=== PATIENT | female | born 1950 | race Caucasian/White ===

== ENCOUNTER 2023-04-02 06:00 | Day surgery (SDC) | payer MEDICARE, OTHER ==
[2023-03-26 11:43] VITALS: BP 120/98
--- NOTE | 2023-03-31 08:08 | NUR ---
PT PRE-OP RESULTS OBTAINED FROM [facility]. Stir+ IS 3.1. VALUE CALLED TO DR. JOYCELYN QUINTANA. REPORT FAXED TO DR JOYCELYN QUINTANA.
--- NOTE | 2023-03-31 12:43 | NUR ---
PCP -DR. UMANZOR HAS PROVIDED PT WITH RX FOR POTASSIUM SUPPLEMENT.
[~2023-04-02] VITALS: Ht 170.2 cm; Wt 81.4 kg
[~2023-04-02 06:00] MED LIST: BENADRYL25 MG PO; BIOTIN2500 MCG PO; CIPRO500 MG PO; DIAZEPAM5 MG PO; EZETIMIBE10 MG PO; FISH OIL CONC1000 MG PO; FLUTICASONE PRO16 GM NAS; HYDROCHLOROTHIA25 MG PO; IBUPROFEN800 MG PO; KEFLEX500 MG PO; LACTULOSE10 GM/15 M PO; LACTULOSE10 GM/151 PO; LEVOCETIRIZINE D5 MG PO; LISINOPRIL40 MG PO; MEDROL4 M1 PO; METRONIDAZOLE500 MG PO; MONTELUKAST SOD10 MG PO; NIFEDIPINE ER30 MG PO; NORCO 5-325 TA1 EACH PO; OMEPRAZOLE20 MG PO; ONE DAILY1 EAC1 PO; OXYCODONE-ACET1 EAC3 PO; PROAIR HFA8.5 GM INH; TIZANIDINE HCL2 MG PO; TOPROL XL25 MG PO; TRAMADOL HCL50 MG PO; ZYRTEC10 MG PO
[2023-04-02] MEDS ORDERED: FLONASE ALLERG9.9 ML NAS (06:16)
[2023-04-02] MEDS ORDERED: PRILOSEC OTC20 MG PO (06:18)
[2023-04-02] MEDS ORDERED: TYLENOL EXTRA500 MG PO (06:20)
[2023-04-02 06:22] VITALS: BP 144/104
[2023-04-02] MEDS ORDERED: POTASSIUM CHLO20 ME2 PO (06:25)
[2023-04-02 06:47] VITALS: BP 144/74
[2023-04-02 06:53] LABS: ANION GAP 13.1 (7-21); BUN/CREATININE RATIO 12.19 (6.0-28.6); CALCIUM 9.8 mg/dL (8.5-10.1); CREATININE, SERUM 0.82 mg/dL (0.55-1.02); POTASSIUM 3.1 mmol/L (3.5-5.1)
--- NOTE | 2023-04-02 07:38 | NUR ---
DS ROUNDS. PT GONE FOR PROCEDURE. PROVIDED PRAYER.
[2023-04-02 10:43] VITALS: BP 136/74
--- NOTE | 2023-04-02 10:48 | NUR ---
04/02/23 Jacoby RosaAster Angelique 0813- PT ARRIVES TO PACU, LEFT LATERAL POSITION, NON REACTIVE TO STIMULUS. O2 AT 6L PER MASK, LR INFUSING TO RW IV. ABD SOFT, NON DISTENDED. PT PASSING GAS. ALL MONITORS IN PLACE, NO SIGNS OF DISTRESS. 0830- PT STARTLES SELF AWAKE, REORIENTED TO TIME AND PLACE. PT CALMS EASILY. THANKFUL PROCEDURE IS COMPLETE. DENIES PAIN OR NAUSEA. PT MOVED TO ROOM AIR AT THIS TIME. CONTINUES TO PASS GAS. 0847- PT SITTING UP IN BED, ABLE TO REPOSITION SELF. WATER PROVIDED, TOLERATING WELL. 0855- PT UP TO SIDE OF BED, NO COMPLAINTS. PT AMBULATES WITH STEADY GAIT TO BATHROOM, PT TO GET DRESSED, FRIEND CALLED FOR RIDE. 0915- PT VERBALIZED UNDERSTANDING OF INSTRUCTIONS. SALINE LOCK REMOVED, TIP INTACT, DRESSING APPLIED. PT AMBULATED TO WHEEL CHAIR WITH STEADY GAIT. ALERT AND ORIENTED, NO SIGNS OF DISTRESS. ALL BELONGINGS WITH PT, TAKEN OUT TO FRIENDS CAR.
--- NOTE | 2023-04-03 07:34 | OR ---
[facility] [address], [place] [address] Signed DATE OF OPERATION: 04/02/2023 SURGEON: Bassam Hirsch MD PREOPERATIVE DIAGNOSES: 1. Rectal bleeding. 2. Hemorrhoids. 3. Thickened sigmoid colon on CT scan. 4. Diverticulosis. POSTOPERATIVE DIAGNOSES: 1. 7 mm distal sigmoid colon (snare). 2. 4 mm polyp at 75 cm. 3. Punctate hemorrhagic mucosa in distal sigmoid colon (22-16 cm). 4. Moderate diverticulosis left and sigmoid colon. 5. Minimal internal hemorrhoids. PROCEDURE: Colonoscopy with snare polypectomy, hot biopsy and multiple cold biopsies of the distal sigmoid colon. ESTIMATED BLOOD LOSS: None. INDICATIONS: Roxi is a 72-year-old female asked to see me for a colonoscopy. She has declined colonoscopies for many years. She has a fear of being put to sleep. She also has postoperative nausea and vomiting. She told me she quit drinking about a year ago to help her son become sober. She has been on opioids in the past because of her back. Apparently, she has smoked in the past as well. She was having to what she felt like extra heartbeat and ended seeing her escrow secretary, Dr. Elaine Lilly in July 2022. That went well. She has a few PACs. She declined a stress test at that time because apparently her mother during a stress test. I actually saw her back in September 2022. She had no lower GI complaints. She has had hemorrhoids bother her once in a while. She has never given any stool samples. There is no family history of colon cancer or polyps. Her [facility]-[place] in [place] just went through colon cancer surgery in her 60s. Roxi ended up in our local emergency room with 20 days of bright red blood per rectum. CT scan on 01/29/2023 showed some mild wall thickening of the sigmoid colon along about 9 cm. There were just a few lymph nodes in the area. There was some diverticulosis. However, the radiologist did not feel this was diverticulitis. She Electronically Signed By: BASSAM HIRSCH MD 04/03/23 0734 PATIENT NAME: ROXI KONG OPERATIVE REPORT DATE OF : 48 REPORT #: [id number] PHYSICIAN: BASSAM HIRSCH MD PCP: GENNY UMANZOR MD REPORT IS CONFIDENTIAL AND NOT TO BE RELEASED WITHOUT AUTHORIZATION [facility] [address], [place] [address] Signed also has just a small umbilical hernia about 1.4 cm. She told me she thinks her lower GI complaints have resolved and she is back to normal. She was not anemic in the ER. She did take Cipro and Flagyl at home. She has come to see me for a colonoscopy. In the office, I gave her a pamphlet on colonoscopy. We looked at that together in detail. There is risk including, but not limited to gas bloating, crampy abdominal pain, bleeding, perforation requiring surgery, and missed diagnosis. We also reviewed the written instructions for bowel prep line by line. Also, because of her advanced medical issues and previous use of opioids and alcohol, we asked for monitored anesthesia care with IV propofol. That worked out well. She had expressed understanding and wished to proceed. PROCEDURE IN DETAIL: Roxi was taken into our endoscopy suite and placed in the left lateral decubitus position. She was given monitored anesthesia care with IV propofol per our nurse clothing man. A digital rectal exam was performed. There were no external hemorrhoids. She had good sphincter tone. There were no masses. The adult colonoscope was introduced and advanced under direct visualization of camera. We did go through an area in the distal sigmoid colon that seemed to have some edematous punctate hemorrhagic mucosa. Overall, it was soft. It does not look like more obvious cancers. One has to think if this could be ischemic or inflammatory in some other fashion. Once we got above that area, the colon opened up nicely. We went around into the cecum without difficulty. Her prep was good. Just a few areas of liquid stool that we suctioned out. We could easily see the appendiceal orifice and ileocecal valve. The scope was then slowly withdrawn. We took pictures throughout for photodocumentation. There was just a small polyp back at 75 cm that we removed with the help of hot biopsy forceps. She does have diverticulosis. They were moderate in size, moderate in number and scattered about. As we came back at about 22 cm down to about 16 cm, maybe a little more she has this area of mucosal edema and some punctate hemorrhagic looking coloration. We took multiple biopsies along that length for pathologic review. The rectum itself was unremarkable. After this, the gas was suctioned out. The colonoscope removed. We had retroflexed the scope, she does have minimal internal hemorrhoid tissue. Roxi had tolerated the procedure quite well. RECOMMENDATIONS: I will see Roxi back in my office in 7 to 14 days to review her results. Bassam Hirsch MD Electronically Signed By: BASSAM HIRSCH MD 04/03/23 0734 PATIENT NAME: ROXI KONG OPERATIVE REPORT DATE OF : 48 REPORT #: [id number] PHYSICIAN: BASSAM HIRSCH MD PCP: GENNY UMANZOR MD REPORT IS CONFIDENTIAL AND NOT TO BE RELEASED WITHOUT AUTHORIZATION [address] [facility] [place] [place] [address] Signed [facility]/MODL /[id number] cc: MD Genny Pandey MD Copies: BASSAM HIRSCH MD ~ Electronically Signed By: BASSAM HIRSCH MD 04/03/23 0734 PATIENT NAME: ROXI KONG OPERATIVE REPORT DATE OF : 48 REPORT #: [id number] PHYSICIAN: BASSAM HIRSCH MD PCP: GENNY UMANZOR MD REPORT IS CONFIDENTIAL AND NOT TO BE RELEASED WITHOUT AUTHORIZATION
[2023-04-03 23:58] LABS: CARCINOEMBRYONIC ANTIGEN 2.7 ng/mL (())
--- NOTE | 2023-04-04 18:31 | PATH ---
[facility] [place] [facility] [address] [place], [place] [address] Signed SPECIMEN(S): A DISTAL SIGMOID SPECIMEN(S): B COLON, 75 CM SPECIMEN(S): C SIGMOID BIOPSY, 22-16 CM SPECIMEN SOURCE: A. DISTAL SIGMOID B. COLON, 75 CM C. SIGMOID BIOPSY, 22-16 CM CLINICAL HISTORY: Screening colonoscopy, thickened wall sigmoid per radiology FINAL PATHOLOGIC DIAGNOSIS: A. Distal sigmoid colon, biopsy: - Tubular adenoma; 1 of 2 pieces. - Base of polyp is free of adenomatous change. - Negative for high-grade dysplasia and malignancy. - Portion of colonic mucosa with a benign, reactive lymphoid aggregate; 1 of 2 pieces. B. Colon at 75 cm, biopsy: - Tubular adenoma; negative for high-grade dysplasia and malignancy. C. Sigmoid colon, 22-16 cm, biopsy: - Colonic mucosa with normal glandular architecture. - Reactive lymphoid aggregates are noted. - Negative for acute, chronic, and granulomatous inflammation. - Negative for dysplasia and malignancy. COMMENT: Nothing is seen in this set of biopsies which would account for the imaging impression of a thickened sigmoid wall. Follow-up is suggested as clinically indicated. SDL MICROSCOPIC EXAMINATION: Histologic sections of all submitted blocks are examined by light microscopy. These findings, together with the gross examination, support the pathologic diagnosis. GROSS DESCRIPTION: A. The specimen, labeled and designated "Anson, distal sigmoid biopsy," is received in formalin and consists of one ames soft tissue fragment, 0.8 cm. PATIENT NAME: ANSONMAYURI PATHOLOGY DATE OF : 48 REPORT #: [id number] PHYSICIAN: VLAD WHITE PCP: WILMER UMANZOR MD REPORT IS CONFIDENTIAL AND NOT TO BE RELEASED WITHOUT AUTHORIZATION [facility] [place] [facility] [address], [place] [address] Signed Specimen is bisected and entirely submitted in (A1). B. The specimen, labeled and designated "Anson, colon biopsy at 75 cm," is received in formalin and consists of one ames soft tissue fragment, 0.1 cm. Entirely submitted in (B1). C. The specimen, labeled and designated "Anson, sigmoid colon biopsy at 16 to 22 cm," is received in formalin and consists of six ames soft tissue fragments, ranging from 0.2 cm. Entirely submitted in (C1). JS (under the direct supervision of a pathologist) The Gross Description was prepared using a voice recognition system. The report was reviewed for accuracy; however, sound-alike word errors, addition and/or deletions may occur. If there are any questions about this report, please contact Client Services. ADDITIONAL NOTES: Immunohistochemical and/or in situ hybridization studies if performed in this case included appropriate positive controls that reacted as expected. This test was developed and its performance characteristics determined by [facility]. It has not been cleared or approved by the U.S. Food and Drug Administration. The FDA has determined that such clearance or approval is not necessary. This test is used for clinical purposes. It should not be regarded as investigational or for research. [facility] is certified under the Clinical Laboratory Improvement Amendments of 1988 (CLIA) as qualified to perform high complexity clinical laboratory testing. PERFORMING LABORATORY: Technical component was performed by [facility], [address] [place] [id number] (CLIA# [id number]). Professional interpretation was performed by [facility] - [facility], [address] [place] [id number] (CLIA#: [id number]). Diagnostician: Katja Kwon MD Pathologist Electronically Signed 04/04/2023 Copies: PATIENT NAME: MAYURI KONG CANDE PATHOLOGY DATE OF : 48 REPORT #: [id number] PHYSICIAN: VLAD PATHOLOGY PCP: WILMER UMANZOR MD REPORT IS CONFIDENTIAL AND NOT TO BE RELEASED WITHOUT AUTHORIZATION [address] [address] Signed ~ PATIENT NAME: MAYURI KONG CANDE PATHOLOGY DATE OF : 48 REPORT #: [id number] PHYSICIAN: VLAD PATHOLOGY PCP: WILMER UMANZOR MD REPORT IS CONFIDENTIAL AND NOT TO BE RELEASED WITHOUT AUTHORIZATION
== END 2023-04-02 09:15 | disposition home or self-care (01) ==
LOC: OPS 06:00 → DS 06:00 → OPS 07:30 → DS 07:30 → OPS 09:15
PROVIDERS: ATTEND Colon & Rectal Surgery
PROC: 0DBE8ZX Excision of Large Intestine, Via Natural or Artificial Opening Endoscopic, Diagnostic (ICD-10-PCS; 2023-04-02)
PROC: 0DBN8ZX Excision of Sigmoid Colon, Via Natural or Artificial Opening Endoscopic, Diagnostic (ICD-10-PCS; principal; 2023-04-02 07:30)
DX: D12.5 Benign neoplasm of sigmoid colon (principal); D12.6 Benign neoplasm of colon, unspecified; K63.5 Polyp of colon; K57.30 Diverticulosis of large intestine without perforation or abscess without bleeding; K64.8 Other hemorrhoids; I10 Essential (primary) hypertension; M51.36 Other intervertebral disc degeneration, lumbar region; M19.042 Primary osteoarthritis, left hand; M19.041 Primary osteoarthritis, right hand; F17.210 Nicotine dependence, cigarettes, uncomplicated; E78.5 Hyperlipidemia, unspecified; F12.10 Cannabis abuse, uncomplicated; J45.20 Mild intermittent asthma, uncomplicated; Z79.899 Other long term (current) drug therapy; Z87.898 Personal history of other specified conditions; Z88.5 Allergy status to narcotic agent; Z88.8 Allergy status to other drugs, medicaments and biological substances
CPT/HCPCS: 00811; 36415; 80048; 82378; 85610; 88305; J2001; J2704; J7121

== ENCOUNTER 2024-11-19 05:42 | Day surgery (SDC) | payer MEDICARE, OTHER ==
[~2024-11-19] VITALS: Ht 170.2 cm; Wt 73.0 kg
[~2024-11-19 05:42] MED LIST changes: +AMOXICILLIN500 MG PO; +FLONASE ALLERG9.9 ML NAS; +LACTATED RINGER'S 1,000 ML IV SCH; +POTASSIUM CHLO20 ME2 PO; +PRILOSEC OTC20 MG PO; +TYLENOL EXTRA500 MG PO
[2024-11-19 06:06] VITALS: BP 150/94
[2024-11-19] MEDS ORDERED: COLLAGEN SKIN1 EACH PO (06:14)
[2024-11-19] MEDS ORDERED: CANDICIDAL CAP1 EACH PO (06:14)
--- NOTE | 2024-11-19 06:39 | NUR ---
0555- PT REFUSING TO USE WIPES FOR WIPE DOWN WHEN ENTERING THE UNIT. PT IS WORRIED ABOUT ALLERGIES. PT IS EDUCATED ABOUT IMPORTANCE OF CLEANING, AND PT CONTINUES TO DENY.
[2024-11-19] MEDS ORDERED: MIDAZOLAM HCL 2 MG/2 ML VIAL ONE (06:54)
[2024-11-19] MEDS ORDERED: fentaNYL citrate 100 MCG/2 ML VIAL ONE (06:54)
[2024-11-19] MEDS ORDERED: CEFAZOLIN SODIUM 2 GM/20 ML SYR IV SCH (07:00)
[2024-11-19] MEDS ORDERED: IBLOOD GLUCOSE TEST STRIP 1 EA TEST VI PRN (07:00)
[2024-11-19] MEDS ORDERED: LIDOCAINE HCL 1% 5 ML SDV INJ ONE (07:00)
[2024-11-19] MEDS ORDERED: SUCCINYLCHOLINE IN 0.9% NACL 200 MG/10 ML SYRINGE ONE (07:32)
[2024-11-19] MEDS ORDERED: ROCURONIUM BROMIDE 50 MG/5 ML SYR ONE (07:32)
[2024-11-19] MEDS ORDERED: GLYCOPYRROLATE 1 MG/5 ML MDV ONE (08:11)
[2024-11-19 08:50] VITALS: BP 129/60
--- NOTE | 2024-11-19 08:55 | NUR ---
0845- PT ARRIVES FROM PACU. BEDSIDE REPORT RECEIVED FROM ARIA KERN. PT IS DROWSY BUT WAKES TO VERBAL STIMULI AND ANSWERES QUESTIONS APPROPRIATELY. VIATL SIGNS WERE OBTAINED. CALL LIGHT IN REACH AND BED IN LOCKED IN THE LOWEST POSITON. SURGICAL SITES ARE CDI. PT REPORTS NO PAIN OR NAUSEA. PT REQUESTING PUDDING AND COFFEE AND WATER THAT WILL BE PROVIDED. LR INFUSING. DISCHARGE CRITERIA DISCUSSED AND PT IS UNDERSTANDING.
[2024-11-19 09:29] VITALS: BP 148/83
--- NOTE | 2024-11-19 09:32 | NUR ---
0930- PT IS RESTING IN STRETCHER. PT WAKES TO VEBAL STIMULI. VITAL SIGNS OBTAINED. SURGICAL SITES ARE CDI. LR INFUSING. PT WAS ABLE TO EAT SOME PUDDING AND SIPPING ON WATER AND COFFEE. PT DENIES PAIN AND NAUSEA.
--- NOTE | 2024-11-19 09:48 | NUR ---
11/19/24 0948 Nicole,Anneliese 0826 PT ARRIVED TO PACU ON 10L VIA MASK WITH ORAL AIRWAY IN [place]. PT ASLEEP AND RESP EVEN AND UNLABORED. PT MOANING. 0829 PT AWAKES AND ORAL AIRWAY AND O2 MASK REMOVED. PT MOVING AROUND IN BED AND RN REORIENTING PT TO PACU. 0835 PT OPENS HER EYES AND IS LOOKING AROUND ROOM, "I FEEL WEIRD." PT DENIES PAIN AND NAUSEA AND WARM BLACKET GIVEN PER REQUEST. 0845 PT RETURNED TO DS AND SIPPING WATER WITH NO CONCERNS. PLAN OF CARE DISCUSSED AND VSS. REPORT GIVEN.
[2024-11-19 10:39] VITALS: BP 157/69
--- NOTE | 2024-11-19 11:01 | NUR ---
1030- PT REQUESTING TO USE THE RESTROOM. PT IS ABLE TO AMBULATE SAFELY WITH HER CANE TO THE RESTROOM. PT VOIDS 300ML OF CLEAR, YELLOW URINE. PT IS ABLE TO RETURN TO THE ROOM SAFELY AND BEGIN TO GET DRESSED. 1045- PT IS DRESSED. VITAL SIGNS OBTAINED. IV REMOVED. DISCHARGE EDUCATION GIVEN AND GONE OVER. ALL QUESTIONS AND CONCERNS ANSWERED. PT HAS ALL BELONGINGS. PT DC'S FR0M DAY SURGERY AT THIS TIME IN HOSPITAL WHEELCHAIR. PT IS ABLE TO TRANSFER SAFELY TO FRIENDS VEHICLE.
[2024-11-19] MEDS ORDERED: SEVOFLURANE 250 ML BTL INH ONE (15:08)
--- NOTE | 2024-11-23 15:29 | PATH ---
[facility] [address], [place] [address] Signed SPECIMEN(S): A RIGHT POSTERIOR FLANK SPECIMEN(S): B LEFT LATERAL THIGH SPECIMEN SOURCE: A. RIGHT POSTERIOR FLANK B. LEFT LATERAL THIGH CLINICAL HISTORY: Lipoma FINAL PATHOLOGIC DIAGNOSIS: A. Right posterior flank: - Benign lobulated adipose tissue consistent with lipoma. B. Left lateral thigh: - Benign lobulated adipose tissue consistent with lipoma. JVR:bianca MICROSCOPIC EXAMINATION: Histologic sections of all submitted blocks are examined by light microscopy. These findings, together with the gross examination, support the pathologic diagnosis. GROSS DESCRIPTION: A. The specimen, labeled and designated "Anson, right posterior flank," is received in formalin and consists of multiple fragmented portions of yellow-ames lobulated fatty tissue (5.0 x 4.5 x 2.2 cm in aggregate). The tissue is serially sectioned to reveal yellow-ames lobulated fatty cut surfaces. Irs Agent sections are submitted in cassette (A1-A2). B. The specimen, labeled and designated "Anson, left lateral thigh," is received in formalin and consists of a slightly fragmented portion of yellow-ames lobulated fatty tissue (3.4 x 3.3 x 2.0 cm). The tissue is inked blue, and serially sectioned to reveal yellow-ames lobulated fatty cut surfaces. Irs Agent sections are submitted in cassette (B1). VB (under the direct supervision of a pathologist) The Gross Description was prepared using a voice recognition system. The report was reviewed for accuracy; however, sound-alike word errors, addition and/or deletions may occur. If there is any question about this report, please contact Client Services. PERFORMING LABORATORY: PATIENT NAME: MAYURI KONG PATHOLOGY DATE OF : 48 REPORT #: [id number] PHYSICIAN: VLAD PATHOLOGY PCP: WILMER UMANZOR MD REPORT IS CONFIDENTIAL AND NOT TO BE RELEASED WITHOUT AUTHORIZATION [facility] [address] [place] [place] [address] Signed Technical component was performed by [facility], [address] [place] [id number] (CLIA# [id number]). Professional interpretation was performed by [facility] - [facility], [address] [place] [id number] (CLIA#: [id number]). Diagnostician: Karthik Bruce MD Pathologist Electronically Signed 11/23/2024 Copies: ~ PATIENT NAME: MAYURI KONG PATHOLOGY DATE OF : 48 REPORT #: [id number] PHYSICIAN: VLAD PATHOLOGY PCP: WILMER UMANZOR MD REPORT IS CONFIDENTIAL AND NOT TO BE RELEASED WITHOUT AUTHORIZATION
== END 2024-11-19 10:55 | disposition home or self-care (01) ==
LOC: DS 05:42
PROVIDERS: ATTEND Surgery
PROC: 0JBM0ZZ Excision of Left Upper Leg Subcutaneous Tissue and Fascia, Open Approach (ICD-10-PCS; 2024-11-19)
PROC: 0JB70ZZ Excision of Back Subcutaneous Tissue and Fascia, Open Approach (ICD-10-PCS; principal; 2024-11-19 07:30)
DX: D17.1 Benign lipomatous neoplasm of skin and subcutaneous tissue of trunk (principal); D17.24 Benign lipomatous neoplasm of skin and subcutaneous tissue of left leg; J45.909 Unspecified asthma, uncomplicated; I10 Essential (primary) hypertension; Z79.51 Long term (current) use of inhaled steroids; Z79.899 Other long term (current) drug therapy; Z88.1 Allergy status to other antibiotic agents; Z88.5 Allergy status to narcotic agent; Z88.8 Allergy status to other drugs, medicaments and biological substances; Z90.49 Acquired absence of other specified parts of digestive tract; Z90.710 Acquired absence of both cervix and uterus; Z98.51 Tubal ligation status
CPT/HCPCS: 00300; J0330; J0690; J2250; J2405; J2704; J3010; J3490; J7121